=== PATIENT | male | born 1995 | race Two or more races ===

== ENCOUNTER 2021-01-20 10:53 | Emergency (ER) | payer MEDICAID, OTHER ==
[~2021-01-20] VITALS: Ht 175.3 cm; Wt 74.8 kg
[2021-01-20 10:55] VITALS: BP 139/87
[2021-01-20] MEDS ORDERED: ALBUTEROL SULF 2.5 MG/0.5ML(0.5%) NEB SOLN NEB ONE (12:00)
[2021-01-20] MEDS ORDERED: IPRATROPIUM BROM 0.5 MG/2.5ML INH SOL NEB ONE (12:00)
== END 2021-01-20 12:42 | disposition home or self-care (01) ==
LOC: ER 10:53
DX: J98.01 Acute bronchospasm (principal); K21.9 Gastro-esophageal reflux disease without esophagitis
CPT/HCPCS: 71046; 94640; 99283; J7644